=== PATIENT | female | born 1985 | race Hispanic/Latino ===

== ENCOUNTER 2020-12-19 18:00 | Inpatient (IN) | payer OTHER, SELFPAY ==
[2020-12-20] MEDS ORDERED: Promethazine HCl 25 MG/ML VIAL IM PRN (01:58)
[2020-12-20] MEDS ORDERED: Acetaminophen 500 MG TAB PO PRN (01:58)
[2020-12-20] MEDS ORDERED: hydrALAZINE 20 MG/ML VIAL SLOW IVP PRN (01:58)
[2020-12-20] MEDS ORDERED: Ondansetron PF 4 MG/2 ML Vial IVP PRN (01:58)
[2020-12-20] MEDS ORDERED: Lactated Ringer's 1,000 ML IV SCH (02:00)
[2020-12-20] MEDS ORDERED: Ibuprofen 800 MG TAB PO PRN (02:01)
[2020-12-20] MEDS ORDERED: Lidocaine 1% (PF) 30 ML VIAL SC PRN (02:01)
[2020-12-20] MEDS ORDERED: NS w/ Oxytocin 30 units 500 ML IV SCH (02:15)
[2020-12-20 02:20] VITALS: BMI 20.2
[2020-12-20] MEDS: Misoprostol 200 MCG TAB VAG SCH ×4 (03:06→21:50)
[2020-12-20 03:24] LABS: Hemoglobin 11.6 g/dL (12.0-15.5); Mean Corpuscular HGB CONC 34.4 g/dL (32.0-36.0); Mean Corpuscular Hemoglobin 30.9 pg (27.0-33.0); Mean Corpuscular Volume 89.6 fl (81.6-98.3); Mean Platelet Volume 11.3 fl (7.4-10.4); Platelet Count 223 10x3/uL (150-450); RBC Distribution Width 15.6 % (11.5-14.5); Red Blood Cell (RBC) Count 3.76 10x6/uL (3.90-5.03); White Blood Cell (WBC) Count 5.9 10x3/uL (3.5-10.5)
[2020-12-20 04:15] LABS: Hep B Surf Ag Non-Reactive S/CO (NonReactive)
[2020-12-20 04:16] LABS: Syphilis Antibody Nonreactive (Nonreactive); Syphilis Antibody Index 0.05 S/CO (<1.00 Non-Reactive)
[2020-12-20 04:19] LABS: SARS-CoV-2 NAA Rapid Test DETECTED (NotDetected)
[2020-12-20 04:22] LABS: HBSAg Index 0.21 S/CO (0-0.99)
[2020-12-20] MEDS: Butorphanol Tartrate 1 MG/ML VIAL SLOW IVP PRN ×2 (12:30→22:04)
[2020-12-21] MEDS: Butorphanol Tartrate 1 MG/ML VIAL SLOW IVP PRN (00:34)
== END 2020-12-21 11:05 | disposition home or self-care (01) | DRG 805 ==
LOC: CSHLD 12-20 01:43
PROVIDERS: ADMIT Family Medicine; ATTEND Family Medicine
PROC: 10E0XZZ Delivery of Products of Conception, External Approach (ICD-10-PCS; principal; 2020-12-21)
DX: O36.4XX0 Maternal care for intrauterine death, not applicable or unspecified (principal); U07.1 COVID-19; Z37.1 Single stillbirth; O98.52 Other viral diseases complicating childbirth; Z3A.21 21 weeks gestation of pregnancy; O75.89 Other specified complications of labor and delivery; O36.22X0 Maternal care for hydrops fetalis, second trimester, not applicable or unspecified
CPT/HCPCS: 36415; 85027; 86780; 86850; 86900; 86901; 87340; J0595; J2405; J7120; U0002

== ENCOUNTER 2023-01-26 09:54 | Outpatient (CLI) | payer OTHER | END 2023-01-26 09:55 | disposition home or self-care (01) | LOC: CSHULT 09:54 | PROVIDERS: ATTEND Family Medicine | DX: O09.522 Supervision of elderly multigravida, second trimester (principal); Z3A.21 21 weeks gestation of pregnancy | CPT/HCPCS: 76805 ==

== ENCOUNTER 2023-05-01 10:01 | Day surgery (SDC) | payer MEDICAID, OTHER | END 2023-05-01 11:47 | disposition home or self-care (01) | LOC: CSHLD/OP 10:01 | PROVIDERS: ATTEND Family Medicine | DX: O47.03 False labor before 37 completed weeks of gestation, third trimester (principal); Z36.89 Encounter for other specified antenatal screening; O36.4XX0 Maternal care for intrauterine death, not applicable or unspecified; Z3A.36 36 weeks gestation of pregnancy | CPT/HCPCS: 59025; 76819; 99282 ==

== ENCOUNTER 2023-05-02 18:00 | Inpatient (IN) | payer MEDICAID, OTHER, SELFPAY ==
[~2023-05-02 18:00] MED LIST: Bupivacaine 0.25% HCL 30 ML VIAL ONE
[2023-05-02 20:46] VITALS: BMI 23.6
[2023-05-02] MEDS ORDERED: Misoprostol 200 MCG TAB PR PRN (21:00)
[2023-05-02] MEDS ORDERED: hydrALAZINE 20 MG/ML VIAL SLOW IVP PRN (21:00)
[2023-05-02] MEDS ORDERED: Methylergonovine 0.2 MG/ML VIAL IM PRN (21:00)
[2023-05-02] MEDS ORDERED: Promethazine HCl 25 MG/ML VIAL IM PRN (21:00)
[2023-05-02] MEDS ORDERED: Tranexamic Acid 1,000 MG/10 ML VIAL IVP PRN (21:00)
[2023-05-02] MEDS ORDERED: Diphenoxylate HCl/Atropine Tablet PO PRN (21:00)
[2023-05-02] MEDS ORDERED: Ondansetron PF 4 MG/2 ML Vial IVP PRN (21:00)
[2023-05-02] MEDS ORDERED: Lidocaine 1% (PF) 30 ML VIAL SC PRN (21:00)
[2023-05-02] MEDS ORDERED: HYDROcodone/Acetaminophen 5/325 mg Tablet PO PRN (21:00)
[2023-05-02] MEDS ORDERED: fentaNYL 50 mcg/mL 1 mL Vial SLOW IVP PRN (21:00)
[2023-05-02] MEDS ORDERED: Carboprost 250 MCG/ML AMP IM PRN (21:00)
[2023-05-02] MEDS ORDERED: Acetaminophen 500 MG TAB PO PRN (21:00)
[2023-05-02] MEDS ORDERED: Oxytocin 30 units/NS 500 ML 500 ML IV SCH ×2 (21:00)
[2023-05-02 21:27] LABS: Hemoglobin 11.2 g/dL (12.0-15.5); Mean Corpuscular HGB CONC 32.9 g/dL (32.0-36.0); Mean Corpuscular Hemoglobin 28.7 pg (27.0-33.0); Mean Corpuscular Volume 87.2 fl (81.6-98.3); Mean Platelet Volume 14.1 fl (7.4-10.4); Platelet Count 160 10x3/uL (150-450); RBC Distribution Width 15.8 % (11.5-14.5); White Blood Cell (WBC) Count 5.4 10x3/uL (3.5-10.5)
[2023-05-02] MEDS: Misoprostol 100 MCG TAB PO SCH (22:18)
[2023-05-02] MEDS: Lactated Ringer's 1,000 ML IV SCH (22:19)
[2023-05-02 22:30] LABS: Syphilis Antibody Nonreactive (Nonreactive); Syphilis Antibody Index 0.06 S/CO (<1.00 Non-Reactive)
[2023-05-02 22:31] LABS: HBSAg Index 0.19 S/CO (0-0.99); Hep B Surf Ag - L&D Non-Reactive S/CO (NonReactive)
[2023-05-03] MEDS: Oxytocin 30 units/NS 500 ML 500 ML IV SCH (08:15)
[2023-05-03] MEDS: fentaNYL/Ropivacaine Epidural 100 ML ONE (09:38)
[2023-05-03] MEDS ORDERED: Naloxone HCl 0.4 mg/ml Vial IVP PRN ×2 (10:02)
[2023-05-03] MEDS ORDERED: ePHEDrine Sulfate 50 MG/10 ML VIAL SLOW IVP PRN (10:02)
[2023-05-03] MEDS ORDERED: Ondansetron PF 4 MG/2 ML Vial IVP PRN ×2 (10:02→20:42)
[2023-05-03] MEDS ORDERED: diphenhydrAMINE 50 MG/ML VIAL IVP PRN (10:02)
[2023-05-03] MEDS ORDERED: Promethazine HCl 25 MG/ML VIAL IM PRN ×2 (10:02→20:42)
[2023-05-03] MEDS ORDERED: Acetaminophen 325 MG TAB PO PRN (10:02)
[2023-05-03] MEDS ORDERED: Moisturizing Cream (Eucerin) 113 GM JAR TOP PRN (10:02)
[2023-05-03] MEDS ORDERED: Lactated Ringer's 500 ML IV PRN (10:02)
[2023-05-03] MEDS ORDERED: fentaNYL 2 mcg/Ropivacaine 0.2% Epidural 100 ML CADD EPIDURAL SCH (10:15)
[2023-05-03] MEDS ORDERED: Communication Order-Pharmacy FS SCH (10:15)
[2023-05-03] MEDS: Ibuprofen 800 MG TAB PO PRN (19:39)
[2023-05-03] MEDS ORDERED: Lanolin Ointment 7 GM TUBE TOP PRN (20:42)
[2023-05-03] MEDS ORDERED: hydrALAZINE 20 MG/ML VIAL SLOW IVP PRN (20:42)
[2023-05-03] MEDS ORDERED: diphenhydrAMINE 25 MG CAP PO PRN (20:42)
[2023-05-03] MEDS ORDERED: Milk Of Magnesia 30 ML UDCUP PO PRN (20:42)
[2023-05-03] MEDS ORDERED: Bisacodyl 10 MG SUPP PR PRN (20:42)
[2023-05-03] MEDS ORDERED: Boostrix 0.5 ML (Tdap) VIAL (>/=7 yrs of age) IM ONE (20:42)
[2023-05-03] MEDS: HYDROcodone/Acetaminophen 5/325 mg Tablet PO PRN (20:56)
[2023-05-03] MEDS: Benzocaine-Menthol 82.5 ML CAN TOP PRN (21:55)
[2023-05-03] MEDS: Docusate 100 MG CAP PO SCH (21:55)
[2023-05-04] MEDS: Ibuprofen 800 MG TAB PO SCH (05:50)
[2023-05-04] MEDS: Ferrous Sulfate 325 MG TAB PO SCH (08:00)
[2023-05-04] MEDS: Prenatal Vitamin 1 TAB PO SCH (08:03)
[2023-05-05 07:49] VITALS: TEMP 97.9
[2023-05-05 16:08] VITALS: BP 104/61
== END 2023-05-05 18:25 | disposition home or self-care (01) | DRG 806 ==
LOC: CSHLD 19:17 → CSHPP 05-03 21:12
PROVIDERS: ADMIT Family Medicine; ATTEND Family Medicine
PROC: 10E0XZZ Delivery of Products of Conception, External Approach (ICD-10-PCS; principal; 2023-05-03)
PROC: 10907ZC Drainage of Amniotic Fluid, Therapeutic from Products of Conception, Via Natural or Artificial Opening (ICD-10-PCS; 2023-05-03)
PROC: 3E0P7VZ Introduction of Hormone into Female Reproductive, Via Natural or Artificial Opening (ICD-10-PCS; 2023-05-03)
PROC: 10H07YZ Insertion of Other Device into Products of Conception, Via Natural or Artificial Opening (ICD-10-PCS; 2023-05-03)
PROC: 3E033XZ Introduction of Vasopressor into Peripheral Vein, Percutaneous Approach (ICD-10-PCS; 2023-05-03)
DX: O76 Abnormality in fetal heart rate and rhythm complicating labor and delivery (principal); O26.643 Intrahepatic cholestasis of pregnancy, third trimester; Z37.0 Single live birth; Z3A.36 36 weeks gestation of pregnancy; O69.81X0 Labor and delivery complicated by cord around neck, without compression, not applicable or unspecified
CPT/HCPCS: 51702; 85027; 86780; 86850; 86900; 86901; 87340; J0665; J2590; J7120